=== PATIENT | male | born 1975 | race Caucasian/White ===

== ENCOUNTER → 2018-05-08 | Emergency (ER) | payer OTHER ==
[~2018-05-08] VITALS: Ht 170.2 cm; Wt 81.6 kg
[~2018-05-08] MED LIST: CIPRO500 MG; KETO10TA2 PO; TETRACYCLINE H250 MG; TRUVADA 100 MG1 EACH; TRUVADA 200 MG1 EACH; URIN D.S. TABLE1 TAB; ZOVIRAX15 GM TP
== END | disposition home or self-care (01) ==
LOC: ER 17:04
DX: A09 Infectious gastroenteritis and colitis, unspecified (principal)

== ENCOUNTER 2022-01-11 09:31 | Outpatient (CLI) | payer OTHER | END 2022-01-11 09:32 | disposition home or self-care (01) | LOC: NUCLEAR 09:31 | PROVIDERS: ATTEND General Practice | DX: M85.80 Other specified disorders of bone density and structure, unspecified site (principal) ==

== ENCOUNTER → 2022-02-17 | Emergency (ER) | payer OTHER ==
[~2022-02-17] VITALS: Ht 170.2 cm; Wt 82.6 kg
[~2022-02-17] MED LIST changes: +INDERAL XL80 MG PO
== END | disposition left against medical advice (07) ==
LOC: ER 14:14
DX: R51.9 Headache, unspecified (principal)

== ENCOUNTER 2023-10-13 10:18 | Outpatient (CLI) | payer OTHER | END 2023-10-13 10:21 | disposition home or self-care (01) | LOC: RAD 10:18 | DX: M25.562 Pain in left knee (principal); M25.561 Pain in right knee; M25.552 Pain in left hip ==